=== PATIENT | female | born 1945 | race Caucasian/White ===

== ENCOUNTER 2020-04-25 16:35 | Observation (INO) ==
[2020-04-25] MEDS ORDERED: ASPIRIN CHEW 81 MG TABLET PO STA (16:59)
[2020-04-25 17:50] LABS: Basophils # 0.1 10*3/uL (0.0-0.2); Eosinophils # 0.2 10*3/uL (0.0-0.87); Eosinophils % 3.3 % (0.00-10.9); Hematocrit 39.9 VOL% (35.7-47.0); Immature Granulocytes % 0.4 %; Immature Granulocytes Absolute 0.02 #; Lymphocytes % 41.6 % (21.3-54.2); Mean Corpuscular HGB Conc 32.6 GM/DL (32-36); Mean Corpuscular Volume 87.5 FL (87-102); Mean Platelet Volume 10.9 FL (9.6-12.0); Monocytes % 9.8 % (1.7-12.7); Neutrophils % 43.9 % (38.7-73.9); Platelet Count 264 T/CUMM (130-400); Red Blood Count 4.56 MC/CUMM (3.8-5.5); Red Cell Distribution Width 14.4 % (9.3-17.3); White Blood Count 4.8 T/CUMM (4-12)
[2020-04-25 18:03] LABS: Alanine Aminotransferase 21 U/L (13-56); Albumin 3.8 G/DL (3.4-5.0); Alkaline Phosphatase 26 U/L (45-117); Aspartate Amino Transferase 19 U/L (0-37); Bilirubin,Total < 0.39 MG/DL (0.2-1.0); Blood Urea Nitrogen 18 MG/DL (7-18); Calcium 9.2 MG/DL (8.5-10.1); Estimated Glom Filtration Rate 55 ML/MIN; Glucose 100 MG/DL (74-106); Osmolality,Calculated 280.4 MOS/KG (273-304); Total Protein 6.6 G/DL (6.4-8.3)
[2020-04-25] MEDS ORDERED: NITROGLYCERIN SL 0.4 MG TABLET SL STA (18:59)
[2020-04-25] MEDS ORDERED: ZALEPLON 5 MG CAPSULE PO PRN (19:24)
[2020-04-25] MEDS ORDERED: ACETAMINOPHEN 325 MG TABLET PO PRN (19:24)
[2020-04-25] MEDS ORDERED: ONDANSETRON 4 MG/2 ML VIAL IV PRN (19:24)
[2020-04-25] MEDS ORDERED: NITROGLYCERIN SL 0.4 MG TABLET SL PRN (19:24)
[2020-04-25] MEDS ORDERED: ENOXAPARIN 40 MG/0.4 ML SYRINGE SUBCUT SCH (21:00)
[2020-04-26 07:14] LABS: Risk Ratio 3.45; VLDL CHOLESTEROL 28.8 MG/DL
[2020-04-26] MEDS ORDERED: ASPIRIN EC 325 MG TABLET PO SCH (09:00)
[2020-04-26 09:26] VITALS: BP 126/71
[2020-04-26] MEDS ORDERED: ALUM/MAG/SIMETH/LIDO VISC 1:1 30 ML BOTTLE PO ONE (09:30)
[2020-04-26] MEDS ORDERED: KETOROLAC 15 MG/1 ML VIAL IV ONE (09:30)
[2020-04-26] MEDS ORDERED: PANTOPRAZOLE 40 MG TABLET PO SCH (10:00)
== END 2020-04-26 11:39 | disposition home or self-care (01) ==
LOC: EDBD → EDUNIT# → N.ED 16:35 → N.EDINP 16:35 → N.TELEN 22:27
PROVIDERS: ADMIT Internal Medicine; ATTEND Internal Medicine

== ENCOUNTER 2022-10-14 14:52 | Observation (INO) ==
[2022-10-14 15:29] LABS: Basophils % 0.2 % (0.0-0.8); Eosinophils % 0.5 % (0.00-10.9); Hematocrit 42.3 VOL% (35.7-47.0); Hemoglobin 13.4 GM/DL (12.0-16.0); Immature Granulocytes % 0.6 %; Immature Granulocytes Absolute 0.05 #; Lymphocytes # 0.9 10*3/uL (1.4-4.0); Lymphocytes % 10.5 % (21.3-54.2); Mean Corpuscular HGB Conc 31.7 GM/DL (32-36); Mean Corpuscular Volume 89.4 FL (87-102); Monocytes # 0.5 10*3/uL (0.11-0.8); Monocytes % 5.8 % (1.7-12.7); Neutrophils % 82.4 % (38.7-73.9); Platelet Count 224 T/CUMM (130-400); Red Blood Count 4.73 MC/CUMM (3.8-5.5); Red Cell Distribution Width 14.8 % (9.3-17.3); White Blood Count 8.39 T/CUMM (4-12)
[2022-10-14 15:31] LABS: Bilirubin,Urine Negative (Negative); Blood, Urine Trace mg/dL (Negative); Glucose,Urine (UA) 100 mg/dL (Negative); Ketones,Urine Negative (Negative); Nitrite,Urine Positive (Negative); Protein,Urine Negative (Negative); Urine Appearance Clear (Clear); Urine Color Yellow (Yellow); Urine Specific Gravity 1.015 (1.001-1.035); Urine Urobilinogen 0.2 eU/dL (<2.0); Urine pH 7.5 (4.5-8.0)
[2022-10-14 15:33] LABS: Mucus,Urine Occasional /LPF (Occasional); RBC,Urine 4 /HPF (0-4); Squamous Epithelial Cell,Urine Occasional /HPF (0-10)
[2022-10-14 15:43] LABS: Albumin 3.9 G/DL (3.4-5.0); Bilirubin,Total 0.4 MG/DL (0.20-1.00); Calcium 9.1 MG/DL (8.5-10.1); Osmolality,Calculated 272.8 MOS/KG (273-304); Potassium 3.2 MMOL/L (3.5-5.1); Total Protein 6.8 G/DL (6.4-8.2)
[2022-10-14] MEDS ORDERED: cefTRIAXone 1,000 MG in SODIUM CHLORIDE 0.9% 100 ML IV STA (16:33)
[2022-10-14] MEDS ORDERED: DEXTROSE 50% 25 GM/50 ML VIAL IV STA ×2 (16:53→19:55)
[2022-10-14] MEDS ORDERED: DEXTROSE 50% 25 GM/50 ML SYRINGE IV ONE ×2 (16:54→19:57)
[2022-10-14] MEDS: DEXTROSE 10% 500 ML IV SCH (20:43)
[2022-10-14] MEDS ORDERED: ONDANSETRON 4 MG/2 ML VIAL IV PRN (21:24)
[2022-10-14] MEDS ORDERED: hydrALAZINE 20 MG/1 ML VIAL IV PRN (21:24)
[2022-10-14] MEDS ORDERED: GLUCAGON 1 MG VIAL IM STA (21:46)
[2022-10-14] MEDS ORDERED: DEXTROSE 50% 25 GM/50 ML SYRINGE IV PRN (21:49)
[2022-10-14] MEDS ORDERED: POTASSIUM CHLORIDE 20 MEQ TABLET PO ONE (21:59)
[2022-10-15] MEDS ORDERED: KETOROLAC 15 MG/1 ML VIAL IV PRN (00:13)
[2022-10-15] MEDS: DEXTROSE 10% 500 ML IV SCH ×3 (03:15→19:13)
[2022-10-15 04:11] LABS: Basophils % 0.2 % (0.0-0.8); Eosinophils % 0.5 % (0.00-10.9); Hematocrit 38.1 VOL% (35.7-47.0); Hemoglobin 12.3 GM/DL (12.0-16.0); Immature Granulocytes % 0.4 %; Immature Granulocytes Absolute 0.03 #; Lymphocytes % 22.9 % (21.3-54.2); Mean Corpuscular HGB Conc 32.3 GM/DL (32-36); Mean Platelet Volume 10.3 FL (9.6-12.0); Monocytes # 0.7 10*3/uL (0.11-0.8); Monocytes % 7.6 % (1.7-12.7); Neutrophils % 68.4 % (38.7-73.9); Platelet Count 343 T/CUMM (130-400); Red Blood Count 4.38 MC/CUMM (3.8-5.5); Red Cell Distribution Width 14.6 % (9.3-17.3); White Blood Count 8.51 T/CUMM (4-12)
[2022-10-15 04:29] LABS: Calcium 8.7 MG/DL (8.5-10.1); Osmolality,Calculated 272.5 MOS/KG (273-304); Potassium 3.2 MMOL/L (3.5-5.1)
[2022-10-15] MEDS: LEVOTHYROXINE 75 MCG TABLET PO SCH (05:41)
[2022-10-15] MEDS ORDERED: MAGNESIUM SULF RIDER 4 GM/100 ML PREMIX IV ONE (08:02)
[2022-10-15] MEDS: ACETAMINOPHEN 325 MG TABLET PO PRN ×2 (11:49→17:00)
[2022-10-15] MEDS: DOCUSATE SODIUM 100 MG CAPSULE PO SCH (12:27)
[2022-10-15] MEDS: PANTOPRAZOLE 40 MG TABLET PO SCH (12:27)
[2022-10-15] MEDS: OMEGA 3 ACID ETHYL ESTERS 1 GM CAPSULE PO SCH (12:27)
[2022-10-15] MEDS: POTASSIUM CHLORIDE 20 MEQ TABLET PO SCH (12:28)
[2022-10-15] MEDS: CHOLECALCIFEROL 1,000 UNIT TABLET PO SCH (12:28)
[2022-10-15] MEDS: FENOFIBRATE 145 MG TABLET PO SCH (12:29)
[2022-10-15] MEDS: ESTRADIOL 1 MG TABLET PO SCH (12:31)
[2022-10-15] MEDS: CALCIUM (CARBONATE)/VITAMIN D 600 MG-400 UNIT TABLET PO SCH (12:31)
[2022-10-15] MEDS ORDERED: cefTRIAXone 1,000 MG in SODIUM CHLORIDE 0.9% 100 ML IV SCH (16:00)
[2022-10-15] MEDS ORDERED: ENOXAPARIN 40 MG/0.4 ML SYRINGE SUBCUT SCH (21:00)
[2022-10-15] MEDS ORDERED: MIRTAZAPINE 30 MG TABLET PO SCH (21:00)
[2022-10-16] MEDS: LEVOTHYROXINE 75 MCG TABLET PO SCH (06:28)
[2022-10-16 07:46] VITALS: BP 132/77
[2022-10-16 09:07] LABS: Calcium 8.7 MG/DL (8.5-10.1); Osmolality,Calculated 274.5 MOS/KG (273-304); Potassium 4.2 MMOL/L (3.5-5.1)
[2022-10-16] MEDS: FENOFIBRATE 145 MG TABLET PO SCH (09:29)
[2022-10-16] MEDS: POTASSIUM CHLORIDE 20 MEQ TABLET PO SCH (09:29)
[2022-10-16] MEDS: CALCIUM (CARBONATE)/VITAMIN D 600 MG-400 UNIT TABLET PO SCH (09:29)
[2022-10-16] MEDS: ESTRADIOL 1 MG TABLET PO SCH (09:30)
[2022-10-16] MEDS: PANTOPRAZOLE 40 MG TABLET PO SCH (09:30)
[2022-10-16] MEDS: OMEGA 3 ACID ETHYL ESTERS 1 GM CAPSULE PO SCH (09:30)
[2022-10-16] MEDS: CHOLECALCIFEROL 1,000 UNIT TABLET PO SCH (09:30)
[2022-10-16] MEDS: DOCUSATE SODIUM 100 MG CAPSULE PO SCH (09:30)
[2022-10-16] MEDS ORDERED: CEFUROXIME 500 MG TABLET PO SCH (21:00)
== END 2022-10-16 11:22 | disposition home or self-care (01) ==
LOC: N.TELEN 14:52 → N.ED 14:52 → SUATTDRO 22:48 → N.TELEN 23:06
PROVIDERS: ADMIT Emergency Medicine; ATTEND Internal Medicine